=== PATIENT | female | born 1960 | race Caucasian/White ===

== ENCOUNTER 2016-09-19 13:53 | Emergency (ER) | payer MEDICARE, MEDICAID ==
[2016-02-02 10:33] VITALS: BMI 27.5
[~2016-09-19 13:53] MED LIST: VENTOLIN HFA18 GM INH; ZITHROMAX250 MG PO
== END 2016-09-19 17:51 | disposition left against medical advice (07) ==
LOC: D.ER 13:53
DX: M54.5 Low back pain (principal)

== ENCOUNTER → 2017-01-29 11:19 | Outpatient (CLI) | payer MEDICARE, MEDICAID ==
[2016-02-02 10:33] VITALS: BMI 27.5
[~2017-01-29 11:19] MED LIST changes: +BELSOMRA10 MG PO; +BUTALB-APAP-CA1 EACH PO; +MYCELEX TROCHE10 MG PO; +NEURONTIN 300300 MG PO; +NORVASC10 MG PO; +PERCOCET 10/3251 TA1 PO; +PHENERGAN DM SYR5 ML PO; +PHENERGAN25 M1 PO; +PROAIR HFA8.5 GM INH; +SKELAXIN800 MG PO; +ULTRAM50 MG PO; +VIBRAMYCIN 100100 MG PO
== END | disposition home or self-care (01) ==
LOC: D.MRI 11:19
DX: R12 Heartburn (principal); R10.13 Epigastric pain; R10.31 Right lower quadrant pain; R93.5 Abnormal findings on diagnostic imaging of other abdominal regions, including retroperitoneum; R19.4 Change in bowel habit

== ENCOUNTER 2017-02-21 22:31 | Inpatient (IN) | payer MEDICARE, MEDICAID ==
[~2017-02-21] VITALS: Ht 160 cm; Wt 81.5 kg
--- NOTE | ~2017-02-21 | CN ---
PATIENT NAME:CHUCKY PALMA MEDICAL RECORD: [id number] : 58 LOCATION:D. D.2139 ADMIT DATE: 02/22/17 ACCOUNT: [id number] CONSULTING PHYSICIAN: SB BURGOS MD REFERRING PHYSICIAN: RAMU ARREDONDO MD DATE OF CONSULTATION: 02/22/2017 Cardiology Consultation HISTORY OF PRESENT ILLNESS: A 56-year-old female with history of obstructive pulmonary disease, no known cardiovascular history who began feeling unwell approximately a week ago, malaise, fatigue, increasing cough, dyspnea. Initially, she thought this was her underlying COPD, following which she presented to the ER and was found to be in atrial fibrillation with RVR, multilobar pneumonia, hypokalemic and subsequently had cardiac enzymes that were elevated. We are asked to see her concerning her cardiovascular status. PAST MEDICAL HISTORY: Includes: 1. History of obstructive pulmonary disease. 2. Hypertension. ALLERGIES: SULFA, MORPHINE, DEPAKOTE, AND LEVAQUIN. MEDICATIONS: Typically include albuterol ProAir 2 puffs q.4 hours p.r.n., Skelaxin 800 mg t.i.d., amlodipine 10 every day, Fioricet 1 q.6 hours p.r.n., Neurontin 300 mg t.i.d., Belsomra 10 mg q.h.s., Percocet 10/325 q.12 hours p.r.n., Ultram 50 mg p.o. q. 6 hours p.r.n. SOCIAL HISTORY: Smokes greater than a pack a day. Nondrinker. Easily takes care of all her ADLs. No set exercise program. REVIEW OF SYSTEMS: The patient reports easy bruising but reports no swollen glands. The patient reports no fever, no night sweats, no significant weight gain, no significant weight loss. No significant exercise tolerance. The patient reports no dry eyes, no irritation, no vision change. Patient reports no difficulty hearing and no ear pain. Patient reports no frequent nose bleeds or nose and sinus problems. Patient reports on arm pain on exertion. No shortness of breath while lying down. No history of heart murmur. Patient reports no cough, no wheezing or coughing up blood. Patient reports no abdominal pain, no vomiting. Normal appetite. No diarrhea and not vomiting blood. No nausea and no constipation. Patient reports no incontinence. No difficulty urinating. No hematuria. No increased frequency. Patient reports no muscle aches. No weakness, no arthralgias, no back pain. No swelling of the extremities. Patient reports no abnormal mole, no jaundice, no rashes. Reports no loss of consciousness. No weakness and no numbness. No seizures, dizziness, or headaches. The patient reports no depression, no sleep disturbance, feeling safe in a relationship and no alcohol abuse. Patient reports on fatigue. Reports no runny nose or sinus pressure. No itching, no hives, and no frequent sneezing. PHYSICAL EXAMINATION: GENERAL: Chronically ill-appearing female in no acute distress at this point. VITAL SIGNS: Pulse 86 and sinus, blood pressure 106/69. HEENT: Normocephalic, atraumatic. NECK: No bruits noted. CONSULT REPORT [id number] CHUCKY PALMA HEART: Tones are distant. No obvious murmurs or gallops. LUNGS: Inspiratory and expiratory wheezes with prolonged expiratory phase. ABDOMEN: Soft, nontender. EXTREMITIES: Pulses are 1+. There is no edema. NEUROLOGIC: Grossly intact. IMPRESSION: Probably type 2 non-STEMI, although given her risk factors certainly could have underlying coronary artery disease. Agree with current management. We will check echocardiogram study. Start digoxin for any further arrhythmias. Echo study has been ordered. At some point, we will need ischemic workup when stable from a respiratory standpoint. TRANSINT:[id number] Voice Confirmation ID: [id number] DOCUMENT ID: [id number] SB BURGOS MD at 1337 CC: [id number] DICTATION DATE: 02/22/17 1029 PHOTO MASK INSPECTOR: 02/22/17 1153 DIS IN 02/25/[address] [facility] [address] [place] [address]
--- NOTE | ~2017-02-21 | EC ---
PATIENT:CHUCKY PALMA DATE OF SERVICE: 02/22/17 SEX: F MEDICAL RECORD: [id number] DATE OF : 58 LOCATION:D.M2 D.213 AGE OF PATIENT: 56 ADMISSION DATE: 02/22/17 REFERRING PHYSICIAN: INTERPRETING PHYSICIAN: SB BURGOS MD ECHOCARDIOGRAM REPORT ECHO CHARGES 4 ECHO COMPLETE CLINICAL DIAGNOSIS: AFIB, ELEVATED BNP ECHOCARDIOGRAPHIC MEASUREMENTS (adult normal given) AC root (d.<3.7cm) 2.5 cm LV Septum d (<1.2 cm> 1.4 cm Valve Excursion 1.4 cm LV Septum (systole) 1.6 cm Left Atria (s.<4.0cm> 3.7 cm LVPW d(<1.2cm) 1.2 cm RV (d.<2.3cm) 3.3 cm LVPW (sytole) 1.7 cm LV diastole(<5.6CM) 4.2 cm MV E-F(>70mm/sec) cm LV systole 2.7 cm LVOT Diameter 1.6 cm MV exc.(>10mm) 2.0 cm Est.ejection fraction (50-75%) % Pericardial Effusion N DOPPLER: LVIT cm/sec A 99.0 cm/sec E 70.0 cm/sec LA cm/sec RVSP 21 mmHg LVOT 94 cm/sec AOP1/2T m/s Asc. Ao 142 cm/sec RVOT cm/sec RA cm/sec PA cm/sec AV Gradient Peak 8.09 mmHg AV Mean 4.48 mmHg AV Area 1.7 cm MV Gradient Peak 6.28 mmHg MV Mean 2.20 mmHg MV Area cm COMMENTS: Spring Repairer Helper Hand: Janeth COLES General Engineer: 3 Dr. De La Cruz TAPE# PACS DATE OF SERVICE: 02/22/2017 Adequate 2D echo, color flow and spectral Doppler, and M-Mode. No LVH. LV internal dimension is normal. Wall motion is normal. EF is greater than 55%. Aortic valve is tricuspid. No stenosis by Doppler interrogation. The left atrium is normal. Mitral valve shows no prolapse. Trace MR. Right-sided chamber is grossly normal. Trace TR. TRANSINT:[id number] Voice Confirmation ID: [id number] DOCUMENT ID: [id number] ECHOCARDIOGRAM REPORT [id number] CHUCKY PALMA 02/25/2017 Edited to correct date of service, dmm. SB BURGOS MD at 1337 CC: [id number] DICTATION DATE: 02/23/17925 WASH PLANT OPERATOR: 02/23/17 1126 DIS IN 02/25/17 [place] [id number] [place] [id number]
[~2017-02-21 22:31] MED LIST changes: -BELSOMRA10 MG PO; -BUTALB-APAP-CA1 EACH PO; -MYCELEX TROCHE10 MG PO; -NEURONTIN 300300 MG PO; -NORVASC10 MG PO; -PERCOCET 10/3251 TA1 PO; -PHENERGAN DM SYR5 ML PO; -PHENERGAN25 M1 PO; -PROAIR HFA8.5 GM INH; -SKELAXIN800 MG PO; -ULTRAM50 MG PO; -VIBRAMYCIN 100100 MG PO
[2017-02-22] VITALS (22 sets, daily range): BP systolic 90–132; BP diastolic 31–99; BMI 31.8
[2017-02-22 01:02] LABS: HEMATOCRIT 37.1 % (36.0-48.0); HEMOGLOBIN 13.2 g/dL (12-16); MCH 30.1 pg (26.0-34.0); MCHC 35.6 g/dL (31.0-37.0); MCV 84.7 fL (80.0-100.0); MEAN PLATELET VOLUME 11.6 fL (7.4-10.4); PLATELET COUNT 264 10x3/uL (130-400); RBC 4.38 10x6/uL (4.00-5.40); RDW 14.7 % (11.5-14.5); WBC 26.6 10x3/uL (4.8-10.8)
[2017-02-22 01:20] LABS: APPEARANCE CLOUDY (CLEAR); BILIRUBIN 2+ (NEGATIVE); COLOR 1.015 (YELLOW); GLUCOSE NEGATIVE (NEGATIVE); KETONE NEGATIVE (NEGATIVE); NITRITE NEGATIVE (NEGATIVE); PROTEIN 3+ mg/dL (NEGATIVE); SPECIFIC GRAVITY 1.015 (1.005-1.020)
[2017-02-22 01:21] LABS: AMORPHOUS SEDIMENT >1+ /lpf (NONE SEEN); BACTERIA MANY /hpf (NONE SEEN); EPITHELIAL CELLS OCC /hpf (0-5); GRANULAR CAST NONE SEEN /lpf (NONE SEEN); HYALINE CAST NONE SEEN /lpf (NONE SEEN); MUCUS NONE SEEN /lpf (NONE SEEN); RED CELL CAST NONE SEEN /lpf (NONE SEEN); RED CELLS - URINE 0-5 /hpf (0-5); SPERMATOZOA NONE SEEN /hpf (NONE SEEN); WAXY CAST NONE SEEN /lpf (NONE SEEN); WHITE CELLS - URINE OCC /hpf (0-5); YEAST NONE SEEN /hpf (NONE SEEN)
[2017-02-22 01:27] LABS: LYMPHOCYTES 22 % (15-50); MONOCYTES 2 % (2-11); NEUTROPHILS 50 % (40-80); PLATELET ESTIMATE NORMAL; PLATELET MORPHOLOGY NORMAL PLT MORPH
[2017-02-22 01:46] LABS: ALKALINE PHOSPHATASE 219 U/L (46-116); ALT (SGPT) 37 U/L (10-68); BILIRUBIN - TOTAL 1.37 mg/dL (0.2-1.3); CALC OSMOLALITY 278 mosm/kg (275-300); CALCIUM 8.3 mg/dL (8.5-10.1); CARBON DIOXIDE 25.1 mmol/L (21.0-32.0); CHLORIDE - SERUM 97 mmol/L (98-107); CREATININE - SERUM 1.6 mg/dL (0.6-1.3); GLUCOSE 120 mg/dL (74-106); LIPASE 37 U/L (73-393); PRO BNP 26513 pg/mL (0-125); PROTEIN - SERUM 5.9 g/dL (6.4-8.2); SODIUM 135 mmol/L (136-145); UREA NITROGEN 35 mg/dL (7-18); eGFR NON AFRICAN AMERICAN 35 mL/min (90-120)
[2017-02-22 01:55] LABS: CKMB 14.7 U/L (0.0-3.6); CREATINE KINASE 3293 UL (21-215); POTASSIUM - SERUM 2.7 mmol/L (3.5-5.1)
[2017-02-22] MEDS ORDERED: NORVASC10 MG PO (03:59)
[2017-02-22] MEDS ORDERED: SKELAXIN800 MG PO (04:00)
[2017-02-22] MEDS ORDERED: PHENERGAN DM SYR5 ML PO (04:01)
[2017-02-22] MEDS ORDERED: NEURONTIN 300300 MG PO (04:02)
[2017-02-22] MEDS ORDERED: PHENERGAN25 M1 PO (04:03)
[2017-02-22] MEDS ORDERED: ULTRAM50 MG PO (04:03)
[2017-02-22] MEDS ORDERED: PERCOCET 10/3251 TA1 PO (04:04)
[2017-02-22] MEDS ORDERED: BELSOMRA10 MG PO (04:06)
[2017-02-22] MEDS ORDERED: BUTALB-APAP-CA1 EACH PO (04:07)
[2017-02-22] MEDS ORDERED: PROAIR HFA8.5 GM INH (04:08)
[2017-02-22 11:23] LABS: CKMB 9.5 U/L (0.0-3.6)
[2017-02-22 11:25] LABS: CREATINE KINASE 1698 UL (21-215); TROPONIN-I 0.568 ng/mL (0.000-0.060)
[2017-02-22 17:06] LABS: CKMB 7.1 U/L (0.0-3.6)
[2017-02-22 17:07] LABS: CREATINE KINASE 1431 UL (21-215)
[2017-02-22 22:54] LABS: CKMB 5.5 U/L (0.0-3.6); CREATINE KINASE 1225 UL (21-215); TROPONIN-I 0.286 ng/mL (0.000-0.060)
[2017-02-23] VITALS (15 sets, daily range): BP systolic 119–162; BP diastolic 62–91; Ht 160 cm; Wt 81.5 kg
[2017-02-23 03:51] LABS: BASOPHILS 0.1 % (0-2); EOSINOPHILS 0 % (0-7); HEMATOCRIT 32.6 % (36.0-48.0); HEMOGLOBIN 11.4 g/dL (12-16); LYMPHOCYTES 4.1 % (15-50); MCV 85.8 fL (80.0-100.0); MEAN PLATELET VOLUME 11.8 fL (7.4-10.4); MONOCYTES 1.3 % (2-11); NEUTROPHILS 93.5 % (40-80); PLATELET COUNT 294 10x3/uL (130-400); RDW 15.2 % (11.5-14.5); WBC 30.6 10x3/uL (4.8-10.8)
[2017-02-23 04:00] LABS: CALC OSMOLALITY 287 mosm/kg (275-300); CALCIUM 8.3 mg/dL (8.5-10.1); CARBON DIOXIDE 22.7 mmol/L (21.0-32.0); CHLORIDE - SERUM 105 mmol/L (98-107); GLUCOSE 146 mg/dL (74-106); POTASSIUM - SERUM 4.5 mmol/L (3.5-5.1); SODIUM 140 mmol/L (136-145); UREA NITROGEN 29 mg/dL (7-18); eGFR NON AFRICAN AMERICAN 78 mL/min (90-120)
[2017-02-23 04:37] LABS: CREATININE - SERUM 0.8 mg/dL (0.6-1.3)
[2017-02-24 03:00] VITALS: BP 139/80
[2017-02-24 03:53] LABS: BASOPHILS 0.1 % (0-2); EOSINOPHILS 0 % (0-7); HEMATOCRIT 33.8 % (36.0-48.0); HEMOGLOBIN 11.4 g/dL (12-16); IMMATURE GRANULOCYTES 1.5 % (0-5); LYMPHOCYTES 7.2 % (15-50); MCH 29.4 pg (26.0-34.0); MCHC 33.7 g/dL (31.0-37.0); MCV 87.1 fL (80.0-100.0); MEAN PLATELET VOLUME 11.5 fL (7.4-10.4); MONOCYTES 2.4 % (2-11); NEUTROPHILS 88.8 % (40-80); PLATELET COUNT 360 10x3/uL (130-400); RBC 3.88 10x6/uL (4.00-5.40); RDW 15.3 % (11.5-14.5); WBC 21.2 10x3/uL (4.8-10.8)
[2017-02-24 03:59] LABS: ANION GAP 16.2 mmol/L (8-16); CALCIUM 9.1 mg/dL (8.5-10.1); CARBON DIOXIDE 25.2 mmol/L (21.0-32.0); POTASSIUM - SERUM 4.4 mmol/L (3.5-5.1)
[2017-02-24 04:01] LABS: CREATININE - SERUM 1.1 mg/dL (0.6-1.3)
[2017-02-24 07:00] VITALS: BP 134/91
[2017-02-24 09:00] VITALS: BP 134/91
[2017-02-24 10:19] LABS: IMMUNOGLOBULIN E 38 IU/mL (0-100)
[2017-02-24 11:00] VITALS: BP 133/80
[2017-02-24 16:37] VITALS: BP 140/74
[2017-02-24 20:00] VITALS: BP 149/80
[2017-02-25] VITALS: BP 166/84
[2017-02-25 05:39] LABS: BASOPHILS 0.2 % (0-2); EOSINOPHILS 0.1 % (0-7); HEMATOCRIT 36.5 % (36.0-48.0); HEMOGLOBIN 11.9 g/dL (12-16); IMMATURE GRANULOCYTES 5.7 % (0-5); MCH 29.6 pg (26.0-34.0); MCHC 32.6 g/dL (31.0-37.0); MONOCYTES 3.9 % (2-11); NEUTROPHILS 66.1 % (40-80); RBC 4.02 10x6/uL (4.00-5.40); RDW 15.9 % (11.5-14.5); WBC 17.7 10x3/uL (4.8-10.8)
[2017-02-25 05:50] LABS: MCV 90.8 fL (80.0-100.0); PLATELET COUNT 471 10x3/uL (130-400)
[2017-02-25 06:06] LABS: ANION GAP 14.8 mmol/L (8-16); CALCIUM 8.8 mg/dL (8.5-10.1); CARBON DIOXIDE 25.7 mmol/L (21.0-32.0); CREATININE - SERUM 0.9 mg/dL (0.6-1.3)
[2017-02-25 06:07] LABS: POTASSIUM - SERUM 3.5 mmol/L (3.5-5.1)
[2017-02-25 08:54] VITALS: BP 146/86
[2017-02-25 12:28] VITALS: BP 139/68
[2017-02-25] MEDS ORDERED: MYCELEX TROCHE10 MG PO (14:39)
[2017-02-25] MEDS ORDERED: VIBRAMYCIN 100100 MG PO (14:39)
== END 2017-02-25 16:04 | disposition home or self-care (01) | DRG 871 ==
LOC: D.ER 22:31 → D.ICU 02-22 02:18 → D.M2 02-22 02:18
PROVIDERS: Family Medicine; Internal Medicine Nephrology; Internal Medicine Pulmonary Disease
DX: A41.9 Sepsis, unspecified organism (principal); J15.6 Pneumonia due to other Gram-negative bacteria; J13 Pneumonia due to Streptococcus pneumoniae; J15.20 Pneumonia due to staphylococcus, unspecified; I21.4 Non-ST elevation (NSTEMI) myocardial infarction; J96.01 Acute respiratory failure with hypoxia; I50.33 Acute on chronic diastolic (congestive) heart failure; N17.9 Acute kidney failure, unspecified; J44.1 Chronic obstructive pulmonary disease with (acute) exacerbation; J44.0 Chronic obstructive pulmonary disease with (acute) lower respiratory infection; F17.203 Nicotine dependence unspecified, with withdrawal; I24.8 Other forms of acute ischemic heart disease; I13.0 Hypertensive heart and chronic kidney disease with heart failure and stage 1 through stage 4 chronic kidney disease, or unspecified chronic kidney disease; I48.91 Unspecified atrial fibrillation; J30.9 Allergic rhinitis, unspecified; J20.9 Acute bronchitis, unspecified; I50.9 Heart failure, unspecified; N18.9 Chronic kidney disease, unspecified; K21.9 Gastro-esophageal reflux disease without esophagitis; B37.9 Candidiasis, unspecified

== ENCOUNTER 2017-05-15 07:48 | Emergency (ER) | payer MEDICARE, MEDICAID ==
[2017-02-23 10:05] VITALS: BMI 30.6
[~2017-05-15 07:48] MED LIST changes: +BELSOMRA10 MG PO; +BUTALB-APAP-CA1 EACH PO; +MYCELEX TROCHE10 MG PO; +NEURONTIN 300300 MG PO; +NORVASC10 MG PO; +PERCOCET 10/3251 TA1 PO; +PHENERGAN DM SYR5 ML PO; +PHENERGAN25 M1 PO; +PROAIR HFA8.5 GM INH; +SKELAXIN800 MG PO; +ULTRAM50 MG PO; +VIBRAMYCIN 100100 MG PO
[2017-05-15 08:46] LABS: BASOPHILS 0.2 % (0-2); EOSINOPHILS 1.2 % (0-7); HEMATOCRIT 41.5 % (36.0-48.0); HEMOGLOBIN 13.7 g/dL (12-16); IMMATURE GRANULOCYTES 0.2 % (0-5); LYMPHOCYTES 14.9 % (15-50); MCH 30.4 pg (26.0-34.0); MCV 92.2 fL (80.0-100.0); MEAN PLATELET VOLUME 9.8 fL (7.4-10.4); NEUTROPHILS 78.5 % (40-80); PLATELET COUNT 380 10x3/uL (130-400); RDW 15.5 % (11.5-14.5); WBC 19.5 10x3/uL (4.8-10.8)
[2017-05-15 09:02] LABS: ALBUMIN 3.1 g/dL (3.4-5.0); ANION GAP 14.1 mmol/L (8-16); BILIRUBIN - TOTAL 0.5 mg/dL (0.2-1.3); CALCIUM 9.4 mg/dL (8.5-10.1); CARBON DIOXIDE 27.9 mmol/L (21.0-32.0); CREATININE - SERUM 0.9 mg/dL (0.6-1.3)
== END 2017-05-15 11:20 | disposition home or self-care (01) ==
LOC: D.ER 07:48
PROVIDERS: Emergency Medicine
DX: J18.9 Pneumonia, unspecified organism (principal); J44.9 Chronic obstructive pulmonary disease, unspecified; I10 Essential (primary) hypertension; K21.9 Gastro-esophageal reflux disease without esophagitis; F17.200 Nicotine dependence, unspecified, uncomplicated

== ENCOUNTER 2018-09-04 19:47 | Inpatient (IN) | payer MEDICARE, MEDICAID ==
[~2018-09-04] VITALS: Ht 160 cm; Wt 81.4 kg
[2018-09-04] MEDS ORDERED: MAXALT10 MG PO (20:00)
[2018-09-04] MEDS ORDERED: BUSPAR10 MG PO (20:01)
[2018-09-04] MEDS ORDERED: LIORESAL 10 MG10 MG PO (20:01)
[2018-09-04 20:34] LABS: BASOPHILS 0.1 % (0-2); EOSINOPHILS 0.4 % (0-7); HEMOGLOBIN 15.2 g/dL (12-16); IMMATURE GRANULOCYTES 0.3 % (0-5); LYMPHOCYTES 13.1 % (15-50); MCH 30.6 pg (26.0-34.0); MCHC 34.5 g/dL (31.0-37.0); MCV 88.5 fL (80.0-100.0); MEAN PLATELET VOLUME 9.7 fL (7.4-10.4); MONOCYTES 6.9 % (2-11); NEUTROPHILS 79.2 % (40-80); PLATELET COUNT 339 10x3/uL (130-400); RBC 4.97 10x6/uL (4.00-5.40); WBC 25.3 10x3/uL (4.8-10.8)
[2018-09-04 20:46] LABS: ALBUMIN 3.8 g/dL (3.4-5.0); ALKALINE PHOSPHATASE 100 U/L (46-116); ALT (SGPT) 18 U/L (10-68); BILIRUBIN - TOTAL 0.84 mg/dL (0.2-1.3); CALC OSMOLALITY 280 mosm/kg (275-300); CALCIUM 9.4 mg/dL (8.5-10.1); CARBON DIOXIDE 24.9 mmol/L (21.0-32.0); CHLORIDE - SERUM 105 mmol/L (98-107); GLUCOSE 122 mg/dL (74-106); POTASSIUM - SERUM 4.1 mmol/L (3.5-5.1); SODIUM 140 mmol/L (136-145); UREA NITROGEN 16 mg/dL (7-18); eGFR NON AFRICAN AMERICAN 60 mL/min (90-120)
[2018-09-04 20:49] LABS: AMYLASE - SERUM 29 U/L (25-115); LIPASE 55 U/L (73-393)
[2018-09-04 20:50] LABS: TROPONIN-I < 0.017 ng/mL (0.000-0.060)
[2018-09-04 20:58] LABS: APPEARANCE CLEAR (CLEAR); BILIRUBIN NEGATIVE (NEGATIVE); COLOR DK YELLOW (YELLOW); GLUCOSE NEGATIVE (NEGATIVE); KETONE NEGATIVE (NEGATIVE); NITRITE NEGATIVE (NEGATIVE); PROTEIN NEGATIVE (NEGATIVE); UROBILINOGEN NORMAL (NORMAL)
--- NOTE | 2018-09-04 23:32 | NUR ---
RECEIVED REPORT FROM TOMMY CRUZ. PT IS LAYING IN BED. RESPIRATIONS ARE EVEN AND UNLABORED. NO DISTRESS IS NOTED. FAMILY MEMBER AT BEDSIDE. PT IV PATENT AND INFUSING AT BOLUS RATE AT THIS TIME.
--- NOTE | 2018-09-05 00:52 | NUR ---
PT PLACED ON 2L NC PT REPORTS SHE USES 02 AT NIGHT PRN. PT O2 SAT 92% ON 2L
--- NOTE | 2018-09-05 01:06 | NUR ---
PT ARRIVED ON UNIT VIA WHEELCHAIR ESCORTED BY ER NURSE. PROVIDED GOWN FOR PATIENT AND POSITIONED IN BED FOR COMFORT. FLUSHED IV IN RIGHT AC. AND RE-TAPED INTO POSITION.
[2018-09-05] MEDS ORDERED: DALIRESP500 MCG PO (01:46)
[2018-09-05] MEDS ORDERED: TRAZODONE HCL300 MG PO (01:46)
--- NOTE | 2018-09-05 01:50 | NUR ---
PROVIDED PT WITH WATER, LEMON PECHANGA SODA AND QUENTIN CRACKERS FOR SNACK.
--- NOTE | 2018-09-05 02:14 | NUR ---
PT REFUSED TELEMETRY...RETURNED MONITOR TO [facility].
--- NOTE | 2018-09-05 02:15 | NUR ---
IV FLUIDS STARTED. FINISHED ZOSYN STARTED IN ER. STARTED IV ROBAXIN 1000 MG IVPB....WILL START IVPB VANC NEXT.
[2018-09-05 02:32] VITALS: BP 140/71; Ht 160 cm; Wt 81.4 kg
[2018-09-05 05:45] VITALS: BP 114/69
[2018-09-05 08:44] VITALS: BP 122/54
[2018-09-05 09:19] LABS: BASOPHILS 0.2 % (0-2); HEMATOCRIT 40.9 % (36.0-48.0); HEMOGLOBIN 13.9 g/dL (12-16); IMMATURE GRANULOCYTES 0.3 % (0-5); LYMPHOCYTES 16.6 % (15-50); MCV 88.1 fL (80.0-100.0); MEAN PLATELET VOLUME 9.9 fL (7.4-10.4); MONOCYTES 6.8 % (2-11); NEUTROPHILS 75.1 % (40-80); PLATELET COUNT 309 10x3/uL (130-400); RBC 4.64 10x6/uL (4.00-5.40); RDW 16.3 % (11.5-14.5)
--- NOTE | 2018-09-05 09:20 | NUR ---
ALERT AND ORIENTEDX4. EXP/INSPIRATORY CRACKLES NOTED X4 POSERIOR. CAP REFILL<3 SEC. O2 2L N/C. DENIES ANY SHORTNESS OF BREATH. IVF INFUSING VIA LT. FOREARM W/O COMPLICATIONS. ENCOURAGED TO USE CALL LIGHT FOR ASSSIT WITH PERCOCET GIVEN FOR PAIN.
[2018-09-05 09:22] LABS: WBC 17.5 10x3/uL (4.8-10.8)
[2018-09-05 09:32] LABS: ALBUMIN 3.3 g/dL (3.4-5.0); ANION GAP 15.3 mmol/L (8-16); BILIRUBIN - TOTAL 0.8 mg/dL (0.2-1.3); CALCIUM 8.4 mg/dL (8.5-10.1); CARBON DIOXIDE 24.4 mmol/L (21.0-32.0); POTASSIUM - SERUM 3.7 mmol/L (3.5-5.1); PROTEIN - SERUM 6.4 g/dL (6.4-8.2)
[2018-09-05 12:59] VITALS: BP 117/78
[2018-09-05 18:03] VITALS: BP 131/65
[2018-09-05 20:00] VITALS: BP 117/61
--- NOTE | 2018-09-05 20:00 | NUR ---
ALERT SITTING U[P ON SIDE OF BED REPORTS HEADACHE, INSTRUCTED TOO EARLY FOR PAIN MEDICATION, SEE SHIFT ASSESSMENT, CALL LIGHT IN REACH
[2018-09-06 03:07] LABS: UDS - AMPHET NEGATIVE QUAL (NEGATIVE); UDS - BARB NEGATIVE QUAL (NEGATIVE); UDS - BENZO NEGATIVE QUAL (NEGATIVE); UDS - COCAINE NEGATIVE QUAL (NEGATIVE); UDS - OPIATE POSITIVE QUAL (NEGATIVE); UDS - PCP NEGATIVE QUAL (NEGATIVE); UDS - THC NEGATIVE QUAL (NEGATIVE)
[2018-09-06 04:00] VITALS: BP 162/85
[2018-09-06 05:44] LABS: CALC OSMOLALITY 286 mosm/kg (275-300); CALCIUM 8.8 mg/dL (8.5-10.1); CARBON DIOXIDE 24.5 mmol/L (21.0-32.0); CHLORIDE - SERUM 107 mmol/L (98-107); CREATININE - SERUM 0.8 mg/dL (0.6-1.3); GLUCOSE 172 mg/dL (74-106); SODIUM 143 mmol/L (136-145); UREA NITROGEN 7 mg/dL (7-18); VANCOMYCIN - TROUGH 15.2 ug/mL (10.0-20.0); eGFR NON AFRICAN AMERICAN 78 mL/min (90-120)
[2018-09-06 05:50] LABS: POTASSIUM - SERUM 4.4 mmol/L (3.5-5.1)
[2018-09-06 06:15] LABS: BASOPHILS 0.1 % (0-2); EOSINOPHILS 0 % (0-7); HEMATOCRIT 43.6 % (36.0-48.0); HEMOGLOBIN 14.2 g/dL (12-16); IMMATURE GRANULOCYTES 0.6 % (0-5); LYMPHOCYTES 11.2 % (15-50); MCH 29.2 pg (26.0-34.0); MCHC 32.6 g/dL (31.0-37.0); MCV 89.5 fL (80.0-100.0); MEAN PLATELET VOLUME 10.1 fL (7.4-10.4); MONOCYTES 1.8 % (2-11); NEUTROPHILS 86.3 % (40-80); PLATELET COUNT 310 10x3/uL (130-400); RBC 4.87 10x6/uL (4.00-5.40); RDW 16.6 % (11.5-14.5); WBC 13.9 10x3/uL (4.8-10.8)
--- NOTE | 2018-09-06 07:55 | NUR ---
PT AWAKE AND ORIENTED, C/O PAIN BUT UNDERSTANDS SHE CAN NOT GET ANY MORE PAIN MEDICATIONS UNTIL CERTAIN TIMES PER MD ORDER. PT WANTS TO GET UP AND WALK AROUND, UNHOOKED HER AT THIS TIME SO SHE COULD WALK. WILL HOOK BACK UP SHORLTY. PT WANTS TO GO HOME TODAY, STATING SHE DOESN'T FEEL GOOD AND WOULD BE BETTER AT HOME. WILL ADVISE DR WHEN THEY ARRIVE.
[2018-09-06 08:15] VITALS: BP 173/81
[2018-09-06 12:15] VITALS: BP 133/67
[2018-09-06] MEDS ORDERED: ALBUTEROL2.5 MG/3 M INH (12:49)
[2018-09-06] MEDS ORDERED: BROVANA15 MCG/2 M INH (12:49)
[2018-09-06] MEDS ORDERED: TESSALON PERLE100 MG PO (12:49)
[2018-09-06] MEDS ORDERED: PULMICORT0.5 MG/21 UPD (12:49)
[2018-09-06] MEDS ORDERED: MUCINEX DM ER1 EAC1 PO (12:50)
[2018-09-06] MEDS ORDERED: FLORAJEN3 CAPS460 MG PO (12:50)
[2018-09-06] MEDS ORDERED: AZELASTINE137 MCG/0. NASAL (12:50)
[2018-09-06] MEDS ORDERED: SINGULAIR10 MG PO (12:50)
[2018-09-06] MEDS ORDERED: FLUTICASONE PRO16 GM NASAL (12:50)
[2018-09-06] MEDS ORDERED: PROTONIX40 MG PO (12:52)
[2018-09-06] MEDS ORDERED: PREDNISONE10 MG PO (12:53)
[2018-09-06] MEDS ORDERED: DIFLUCAN150 MG PO (12:54)
[2018-09-06] MEDS ORDERED: ZITHROMAX500 MG PO (12:55)
[2018-09-06] MEDS ORDERED: Nicoderm [PBKC] TRANSDERM (12:55)
[2018-09-06] MEDS ORDERED: OMNICEF300 MG PO (12:55)
--- NOTE | 2018-09-06 13:14 | MORECARE ---
CASE MANAGEMENT DISCHARGE SUMMARY PATIENT: CHUCKY PALMA UNIT: [id number] ADM DATE: 09/05/18 AGE: 57 : 58 SEX: F ROOM/BED: D.2233 AUTHOR: ERASMO VILLEGAS PHYSICIAN: REFERRING PHYSICIAN: RAMU ARREDONDO MD DATE OF SERVICE: 09/06/18 Discharge Plan Patient Name: CHUCKY PALMA Facility: [facility]:[place] : 1960 Planned Disposition: Home Anticipated Discharge Date: 09/06/18 Discharge Date: Expected LOS: 1 Initial Reviewer: [email or web address] Initial Review Date: 09/06/2018 Generated: 09/06/18 2:14 pm Patient Name: CHUCKY PALMA Page [phone] at 1314 All edits/amendments must be made on the electronic document DICTATION DATE: 09/06/18 1313 HSPT TUTOR: ALON 09/06/18 1313 RPT#: [id number] DC DATE: STATUS: ADM IN [facility] [address] [place] [address] END OF REPORT
--- NOTE | 2018-09-06 13:21 | MORECARE ---
CASE MANAGEMENT DISCHARGE SUMMARY PATIENT: CHUCKY PALMA UNIT: [id number] ADM DATE: 09/05/18 AGE: 57 : 58 SEX: F ROOM/BED: D.2233 AUTHOR: NELLY,DOC PHYSICIAN: REFERRING PHYSICIAN: RAMU ARREDONDO MD DATE OF SERVICE: 09/06/18 Discharge Plan Patient Name: CHUCKY PALMA Facility: [facility]:[place] : 1960 Planned Disposition: Home Anticipated Discharge Date: 09/06/18 Discharge Date: Expected LOS: 1 Initial Reviewer: [email or web address] Initial Review Date: 09/06/2018 Generated: 09/06/18 2:20 pm Comments DCP- Discharge Planning Updated by [email or web address]: Laure Hare on 09/06/18 12:[address] Patient Name: CHUCKY PALMA Admission Status: ER Accout number: [id number] Admission Date: 09-05-2018 : 1960 Admission Diagnosis: Attending: RAMU ARREDONDO Current LOS: 1 Anticipated DC Date: 09-06-2018 Planned Disposition: Home Primary Insurance: [employer] CHOICE PPO MCR ADVANT Discharge Planning Comments: CM met with patient to complete initial dc planning assessment. CM educated patient on the CM role and verbal consent given by patient to complete assessment. Patient lives at home with her boyfriend (Austin Larsen). At discharge patient plans to return and feels this is a safe discharge. CM discussed availability of home health, rehab services, and medical equipment. Patient denied known discharge needs at this time. She states she will be able to purchase her Rx. CM will continue to follow and will assist as needed with dc plans/needs. Bankruptcy Attorney: Laure Hare DCPIA - Discharge Planning Initial Assessment Updated by [email or web address]: Laure Hare on 09/06/18 1:15 pm * Is the patient Alert and Oriented? Yes * How many steps to enter\exit or inside your home? 1/0 * PCP Dr. Jennings * Pharmacy [facility] * Preadmission Environment Home with Family * ADLs Independent * Equipment Nebulizer Other Oxygen * Other Equipment Portable oxygen * List name and contact numbers for known caregivers / representatives who currently or will assist patient after discharge: Austin Larsen - boyfriend - [phone] * Verbal permission to speak to the caregivers and representatives has been obtained from the patient. Yes * Community resources currently utilized None * Please name any agencies selected above. Bill is DME * Additional services required to return to the preadmission environment? No * Can the patient safely return to the preadmission environment? Yes * Has this patient been hospitalized within the prior 30 days at any hospital? No Last DP export: 09/06/18 12:14 p Patient Name: CHUCKY PALMA Page [phone] at 1321 All edits/amendments must be made on the electronic document DICTATION DATE: 09/06/181319 CAN REFORMING MACHINE OPERATOR: ALON 09/06/18 1320 RPT#: [id number] DC DATE: STATUS: ADM IN [facility] [address] [place] [address] END OF REPORT
--- NOTE | 2018-09-06 14:50 | NUR ---
PT ESCORTED OUT VIA WHEELCHAIR TO DAUGHTERS POV
[2018-09-07 10:10] LABS: IMMUNOGLOBULIN A 80 mg/dL (87-352); IMMUNOGLOBULIN G 585 mg/dL (700-1600)
[2018-09-09 21:06] LABS: IGG SUBCLASS 1 386 mg/dL (248-810); IGG SUBCLASS 2 133 mg/dL (130-555); IGG SUBCLASS 3 32 mg/dL (15-102); IGG SUBCLASS 4 1 mg/dL (2-96)
== END 2018-09-06 14:51 | disposition home or self-care (01) | DRG 193 ==
LOC: D.ER 19:47 → D.MS 09-05 00:09
PROVIDERS: Family Medicine; Internal Medicine Pulmonary Disease; ADMIT Internal Medicine Nephrology; ATTEND Internal Medicine Nephrology
DX: J18.1 Lobar pneumonia, unspecified organism (principal); J96.21 Acute and chronic respiratory failure with hypoxia; J44.0 Chronic obstructive pulmonary disease with (acute) lower respiratory infection; J44.1 Chronic obstructive pulmonary disease with (acute) exacerbation; I11.0 Hypertensive heart disease with heart failure; I50.9 Heart failure, unspecified; K21.9 Gastro-esophageal reflux disease without esophagitis; I08.1 Rheumatic disorders of both mitral and tricuspid valves; F17.210 Nicotine dependence, cigarettes, uncomplicated; I48.2 Chronic atrial fibrillation; M79.7 Fibromyalgia; M81.0 Age-related osteoporosis without current pathological fracture; I10 Essential (primary) hypertension; E78.00 Pure hypercholesterolemia, unspecified

== ENCOUNTER 2018-09-25 18:52 | Inpatient (IN) | payer MEDICARE, MEDICAID ==
[~2018-09-25] VITALS: Ht 160 cm; Wt 79.8 kg
[~2018-09-25 18:52] MED LIST changes: +ALBUTEROL2.5 MG/3 M INH; +AZELASTINE137 MCG/0. NASAL; +BROVANA15 MCG/2 M INH; +BUSPAR10 MG PO; +DALIRESP500 MCG PO; +DIFLUCAN150 MG PO; +FLORAJEN3 CAPS460 MG PO; +FLUTICASONE PRO16 GM NASAL; +LIORESAL 10 MG10 MG PO; +MAXALT10 MG PO; +MUCINEX DM ER1 EAC1 PO; +Nicoderm [PBKC] TRANSDERM; +OMNICEF300 MG PO; +PREDNISONE10 MG PO; +PROTONIX40 MG PO; +PULMICORT0.5 MG/21 UPD; +SINGULAIR10 MG PO; +TESSALON PERLE100 MG PO; +TRAZODONE HCL300 MG PO; +ZITHROMAX500 MG PO
[2018-09-25] MEDS ORDERED: TAMIFLU75 MG PO (18:58)
[2018-09-25 19:32] LABS: BASOPHILS 0.4 % (0-2); EOSINOPHILS 1.4 % (0-7); HEMATOCRIT 46.5 % (36.0-48.0); HEMOGLOBIN 16.1 g/dL (12-16); IMMATURE GRANULOCYTES 0.4 % (0-5); LYMPHOCYTES 28.1 % (15-50); MCH 30.7 pg (26.0-34.0); MCHC 34.6 g/dL (31.0-37.0); MCV 88.7 fL (80.0-100.0); MEAN PLATELET VOLUME 9.3 fL (7.4-10.4); NEUTROPHILS 62.7 % (40-80); PLATELET COUNT 337 10x3/uL (130-400); RBC 5.24 10x6/uL (4.00-5.40); RDW 16.4 % (11.5-14.5); WBC 16.2 10x3/uL (4.8-10.8)
[2018-09-25 19:44] LABS: APTT 35.7 SECONDS (22.8-39.4); INR 1.02 (0.85-1.17); PROTIME 12.9 SECONDS (11.6-15.0)
[2018-09-25 19:46] LABS: ALBUMIN 3.6 g/dL (3.4-5.0); ALKALINE PHOSPHATASE 101 U/L (46-116); ALT (SGPT) 17 U/L (10-68); BILIRUBIN - TOTAL 0.31 mg/dL (0.2-1.3); CALC OSMOLALITY 275 mosm/kg (275-300); CALCIUM 9.5 mg/dL (8.5-10.1); CARBON DIOXIDE 27.7 mmol/L (21.0-32.0); CHLORIDE - SERUM 103 mmol/L (98-107); PROTEIN - SERUM 7.2 g/dL (6.4-8.2); SODIUM 139 mmol/L (136-145); UREA NITROGEN 8 mg/dL (7-18); eGFR NON AFRICAN AMERICAN 60 mL/min (90-120)
[2018-09-25 19:47] LABS: GLUCOSE 102 mg/dL (74-106)
[2018-09-25 19:58] LABS: CKMB 0.9 U/L (0.0-3.6); CREATINE KINASE 59 UL (21-215); TROPONIN-I < 0.017 ng/mL (0.000-0.060)
[2018-09-25 20:08] LABS: APPEARANCE CLEAR (CLEAR); BILIRUBIN NEGATIVE (NEGATIVE); COLOR YELLOW (YELLOW); GLUCOSE NEGATIVE (NEGATIVE); KETONE NEGATIVE (NEGATIVE); NITRITE NEGATIVE (NEGATIVE); PROTEIN NEGATIVE (NEGATIVE); SPECIFIC GRAVITY 1.015 (1.005-1.020); UROBILINOGEN NORMAL (NORMAL)
--- NOTE | 2018-09-25 20:46 | NUR ---
MORPHINE ORDERED AT THIS TIME PT STATES THAT SHE IS ALLERGIC. PA AT BEDSIDE. PT STATES THAT HER "ALLERGY" IS IT MAKES HER NAUSEATED. PT STATES THAT IS OK TO CONT MORPHINE WITH NAUSEA MED. PT SEE EMAR.
--- NOTE | 2018-09-25 21:00 | NUR ---
PT AMBULATORY TO BATHROOM WITHOUT ASSISTANCE.
--- NOTE | 2018-09-25 22:30 | NUR ---
RECEIVED PT FROM ER VIA STRETCHER BUT AMBULATED TO BED WITH ASSIST X1. GAIT SLIGHTLY UNSTEADY. GEN WEAKNESS NOTED. RESP NONLABORED. SOB WITH EXERTION. O2 @ 2LNC. PROD COUGH WITH YELLOW SPUTUM REPORTED. V/S STABLE. REPORTS PAIN IN HEAD AND GENERALIZED PAIN 10. RECEIVED MORPHINE IN ER WHICH IS ENTERED ALLERGY BUT PT AND ER STAFF REPORT THAT IT HAS CAUSED HER NAUSEA IN THE PAST AND IS NOT A TRUE ALLERGY. IV INFUSING IN RT FOREARM WITHOUT DIFF. NO DISTRESS. IRRITABLE. SR ELEVATED X2. CL IN REACH.
[2018-09-26] VITALS (7 sets, daily range): BP systolic 126–165; BP diastolic 56–99; BMI 31.2
--- NOTE | 2018-09-26 01:05 | NUR ---
REQUESTS PAIN MED FOR C/O HEADACHE AND GEN ACHES RATING 10. MEDICATED WITH MORPHINE AND ZOFRAN ORDERED. WATCHING TV. NO DISTRESS. CL IN REACH.
--- NOTE | 2018-09-26 03:05 | NUR ---
MEDICATED WITH TYLENOL FOR C/O HEADACHE RATING 10. CL IN REACH. WATCHING TV.
--- NOTE | 2018-09-26 05:10 | NUR ---
MEDICATED WITH MORPHINE FOR C/O HEADACHE, GEN PAIN. GIVEN ZOFRAN TO PREVENT NAUSEA ASSOCIATED WITH MORPHINE. CL IN REACH.
--- NOTE | 2018-09-26 05:45 | NUR ---
PUT SCDS ON PT THEN REFUSED. EXPLAINED PURPOSE AND SHE STILL REFUSED.
[2018-09-26] MEDS ORDERED: PERCOCET 10-321 EAC1 PO (08:06)
[2018-09-26 10:16] LABS: BASOPHILS 0.1 % (0-2); EOSINOPHILS 0 % (0-7); HEMATOCRIT 44.5 % (36.0-48.0); HEMOGLOBIN 15.1 g/dL (12-16); IMMATURE GRANULOCYTES 0.3 % (0-5); LYMPHOCYTES 9.6 % (15-50); MCH 30.2 pg (26.0-34.0); MCHC 33.9 g/dL (31.0-37.0); MEAN PLATELET VOLUME 9.6 fL (7.4-10.4); MONOCYTES 1.2 % (2-11); NEUTROPHILS 88.8 % (40-80); PLATELET COUNT 334 10x3/uL (130-400); RDW 16.5 % (11.5-14.5); WBC 15.7 10x3/uL (4.8-10.8)
[2018-09-26 10:27] LABS: CALCIUM 9.2 mg/dL (8.5-10.1); CARBON DIOXIDE 23.3 mmol/L (21.0-32.0); POTASSIUM - SERUM 4.3 mmol/L (3.5-5.1)
--- NOTE | 2018-09-26 20:10 | NUR ---
SITTING UP IN BED. ALERT AND ORIENTED X4. RESP IRREG. SOB NOTED BUT REFUSES TO WEAR O2 AT THIS TIME. STATES SHE HAS HAD A HEADACHE FOR SEVERAL DAYS. REPORTS PAIN GEN PAIN AND H/A 10 ON PAIN SCALE. MEDICATED WITH DEMEROL AND ZOFRAN. NS @ 75 ML/HR INFUSING IN LT UPPER ARM WITHOUT DIFF. PROD COUGH NOTED WITH YELLOW SPUTUM. REFUSES TO WEAR SCDS. BBS CTA BUT DIMINISHED IN RLL. SR ELEVATED X2. CL IN REACH.
--- NOTE | 2018-09-26 23:25 | NUR ---
REQUESTING PAIN MED. REPORTS PAIN IN HEAD AND ABD. MEDICATED WITH PERCOCET ORDERED. WARM PACK MADE FOR HEAD. WEARING O2 NOW AND HUMIDITY APPLIED. CL IN REACH.
[2018-09-27] VITALS: BP 129/68
--- NOTE | 2018-09-27 02:06 | NUR ---
CALLS STAFF INTO ROOM. C/O ITCHING ALL OVER AND STATES SKIN IS GETTING PINK SINCE RECEIVING ROCEPHIN AT 0044. NOTIFIED MARCO A LIVE. NEW ORDERS NOTED. ROCEPHIN ADDED TO ALLERGIES. PT IN NO ACUTE DISTRESS.
[2018-09-27 04:00] VITALS: BP 152/76
--- NOTE | 2018-09-27 04:14 | NUR ---
COUGHING SPELL AND GAGGING. STATES SHE WANTS PAIN MED, MAXALT, ZOFRAN, AND JELLO. INFORMED THAT PAIN MED WASNT DUE YET. SHE THEN STATES, WELL I WANT THE MAXALT,ZOFRAN AND JELLO.
[2018-09-27 06:12] LABS: BASOPHILS 0 % (0-2); EOSINOPHILS 0 % (0-7); HEMATOCRIT 41.9 % (36.0-48.0); HEMOGLOBIN 14.3 g/dL (12-16); IMMATURE GRANULOCYTES 0.3 % (0-5); LYMPHOCYTES 16.1 % (15-50); MCH 30.1 pg (26.0-34.0); MCHC 34.1 g/dL (31.0-37.0); MCV 88.2 fL (80.0-100.0); MEAN PLATELET VOLUME 9.9 fL (7.4-10.4); NEUTROPHILS 79.6 % (40-80); PLATELET COUNT 338 10x3/uL (130-400); RBC 4.75 10x6/uL (4.00-5.40); RDW 16.4 % (11.5-14.5); WBC 14.8 10x3/uL (4.8-10.8)
[2018-09-27 06:53] LABS: CALC OSMOLALITY 276 mosm/kg (275-300); CALCIUM 9.4 mg/dL (8.5-10.1); CARBON DIOXIDE 24.4 mmol/L (21.0-32.0); CHLORIDE - SERUM 103 mmol/L (98-107); CREATININE - SERUM 0.8 mg/dL (0.6-1.3); GLUCOSE 133 mg/dL (74-106); POTASSIUM - SERUM 3.7 mmol/L (3.5-5.1); SODIUM 138 mmol/L (136-145); UREA NITROGEN 10 mg/dL (7-18); eGFR NON AFRICAN AMERICAN 78 mL/min (90-120)
[2018-09-27 08:20] VITALS: BP 148/74
--- NOTE | 2018-09-27 10:54 | NUR ---
PATIENT REQUESTING BEDPAN BECAUSE SHE IS "TO WEAK TO WALK" ASSISTED BY GRACE. CO OF "BURNING" AND "FREEZING" AT THE SAME TIME. CL IN REACH WCTM
[2018-09-27 12:39] VITALS: BP 150/85
[2018-09-27 14:30] VITALS: BMI 31.1
[2018-09-27 16:26] VITALS: Ht 160 cm; Wt 79.8 kg
[2018-09-27 17:15] VITALS: BP 161/75
--- NOTE | 2018-09-27 17:48 | NUR ---
PATIENT STATES SHE ALSO TAKES GABAPENTIN 600 TID. THAT IF THE BOYFRIEND FOUND OUT IT WOULD UPSET HIM AND THAT HE WOULD NEVER TRUST HER AGAIN. I SAID I WOULD ADD IT TO THE MEDS SHE TAKES.
[2018-09-27] MEDS ORDERED: NEURONTIN600 MG PO (17:50)
--- NOTE | 2018-09-27 18:55 | NUR ---
WENT TO DO PATIENTS BREATHING TREATMENT AT 1855 AND PATIENT STATED THAT SHE "JUST COULDN'T DO THAT RIGHT NOW" DOCUMENTED PATIENT REFUSED
--- NOTE | 2018-09-27 19:35 | NUR ---
PT IS COUGHING AND FEELS NAUSEA FROM MUCOUS. SHE DECLINED REP TX AND NOW WANTS ON. PAGE TO RESP FOR TX.PT O2 SATS 93-94% ON 2 LITERS PER CANULA.MONITOR FOR NEEDS
[2018-09-27 20:00] VITALS: BP 177/83
--- NOTE | 2018-09-27 20:00 | NUR ---
ASSESSMENT PER FLOW SHEET. PT IS VERY ANXIOUS. IS AT BEDSIDE.CALL LIGHT IN REACH
--- NOTE | 2018-09-27 20:07 | NUR ---
16 LATVIAN SAVAGE INSERTED USING FOOTWEAR MACHINERY INSTRUCTOR.BED CHANGED IT WAS SOAKED FROM URINE. PT COMPLAINS OF THE BOTTOMS OF HER FEET AND BACK FEELING SUNBURNED. I SEE SOME PINKNESS BUT NO BLISTERS PER STATED.
--- NOTE | 2018-09-27 21:00 | NUR ---
RAPID RESPONCE CALLED ,SEE SHEET.
[2018-09-27 21:41] LABS: ALBUMIN 3.6 g/dL (3.4-5.0); ALKALINE PHOSPHATASE 97 U/L (46-116); ALT (SGPT) 19 U/L (10-68); BILIRUBIN - TOTAL 0.47 mg/dL (0.2-1.3); CALC OSMOLALITY 273 mosm/kg (275-300); CALCIUM 9.6 mg/dL (8.5-10.1); CHLORIDE - SERUM 101 mmol/L (98-107); CKMB 2.5 U/L (0.0-3.6); CREATINE KINASE 135 UL (21-215); CREATININE - SERUM 0.8 mg/dL (0.6-1.3); GLUCOSE 112 mg/dL (74-106); POTASSIUM - SERUM 3.6 mmol/L (3.5-5.1); PROTEIN - SERUM 7.2 g/dL (6.4-8.2); SODIUM 137 mmol/L (136-145); TROPONIN-I < 0.017 ng/mL (0.000-0.060); UREA NITROGEN 10 mg/dL (7-18); eGFR NON AFRICAN AMERICAN 78 mL/min (90-120)
[2018-09-28] VITALS: BP 172/92
--- NOTE | 2018-09-28 01:49 | NUR ---
FINALLY CALM AFTER BEING UPSET AND VERY ANXIOUS DURING NIGHT. PT STATES SHE WILL GO TO SLEEP NOW AFTER IV ATIVAN ORDERED PER APR.
[2018-09-28 04:00] VITALS: BP 159/81
--- NOTE | 2018-09-28 06:27 | NUR ---
MORE CALM THIS AM. PT REQUEST MORE ATIVAN IV.INSTRUCTED PT THAT WAS A ONE TIME DOSE.MEDS ORDERED PER MAR PER PT REQUEST FOR HEADACHE.CONT PLAN OF CARE
--- NOTE | 2018-09-28 06:55 | NUR ---
PATIENT REFUSED TX DUE TO FATIGUE AND NAUSEA
[2018-09-28 06:58] LABS: BASOPHILS 0.1 % (0-2); EOSINOPHILS 0.1 % (0-7); HEMATOCRIT 46.3 % (36.0-48.0); HEMOGLOBIN 15.9 g/dL (12-16); IMMATURE GRANULOCYTES 0.4 % (0-5); LYMPHOCYTES 25.3 % (15-50); MCHC 34.3 g/dL (31.0-37.0); MCV 87.4 fL (80.0-100.0); MEAN PLATELET VOLUME 9.8 fL (7.4-10.4); MONOCYTES 7.9 % (2-11); NEUTROPHILS 66.2 % (40-80); PLATELET COUNT 381 10x3/uL (130-400); RDW 16.3 % (11.5-14.5)
[2018-09-28 07:28] LABS: WBC 18.6 10x3/uL (4.8-10.8)
[2018-09-28 07:41] LABS: CALC OSMOLALITY 278 mosm/kg (275-300); CALCIUM 9.3 mg/dL (8.5-10.1); CARBON DIOXIDE 27.7 mmol/L (21.0-32.0); CHLORIDE - SERUM 102 mmol/L (98-107); CKMB 1.7 U/L (0.0-3.6); CREATINE KINASE 108 UL (21-215); CREATININE - SERUM 0.6 mg/dL (0.6-1.3); GLUCOSE 84 mg/dL (74-106); POTASSIUM - SERUM 3.8 mmol/L (3.5-5.1); SODIUM 141 mmol/L (136-145); UREA NITROGEN 9 mg/dL (7-18); eGFR NON AFRICAN AMERICAN > 90 mL/min (90-120)
[2018-09-28 07:42] LABS: TROPONIN-I < 0.017 ng/mL (0.000-0.060)
[2018-09-28 09:33] VITALS: BP 164/84
[2018-09-28 10:01] LABS: CKMB 1.7 U/L (0.0-3.6); CREATINE KINASE 116 UL (21-215); TROPONIN-I < 0.017 ng/mL (0.000-0.060)
--- NOTE | 2018-09-28 10:10 | NUR ---
THE PATIENT WAS LYING IN BED AND WATCHING TELEVISION WHEN STAFF ENTERED HER ROOM. BED IS IN THE LOW POSITION WITH SIDERAILS X2 AND CALL LIGHT WITHIN REACH. THE PATIENT WAS EDUCATED ON THE USE OF A CALL LIGHT AND DEMONSTRATES UNDERSTANDING VIA TEACHBACK METHOD. THE PATIENT APPEARS COMFORTABLE WITH NO QUESTIONS OR COCNERNS AT THIS TIME.
--- NOTE | 2018-09-28 10:19 | NUR ---
PATIENT DEMANDS SAVAGE CATHETER REMOVAL. SAVAGE CATHETER REMOVED WITHOUT ISSUE. THE PATIENT APPEARS COMFORTABLE WITH NO QUESTIONS OR CONCERNS AT THIS TIME.
[2018-09-28 11:29] VITALS: BP 159/83
[2018-09-28 16:35] VITALS: BP 156/86
--- NOTE | 2018-09-28 19:00 | NUR ---
ASSESSMENT PER FLOW SHEET. PT IS WITHOUT DISTRESS.MUCH MORE CALM THIS AFTERNOON. PT VERY APOLOGETIC RE.. LAST NIGHT ANXIETY. MONITOR FOR NEEDS.CALL LIGHT IN REACH
[2018-09-28 22:24] VITALS: BP 167/87
[2018-09-29 03:48] VITALS: BP 137/77
--- NOTE | 2018-09-29 06:07 | NUR ---
REMAINS WITHOUT DISTRESS. STILL COMPLAINS OF PAIN TO BACK AND KNEES. PT STATES SHE HAS PAIN ALL THE TIME. SHE IS WITHOUT CHANGE FROM INITIAL SHIFT ASSESSMENT. CONT PLAN OF CARE
[2018-09-29 06:49] VITALS: BP 146/79
[2018-09-29 07:21] LABS: BASOPHILS 0.1 % (0-2); EOSINOPHILS 0.5 % (0-7); HEMATOCRIT 45.1 % (36.0-48.0); HEMOGLOBIN 15.4 g/dL (12-16); IMMATURE GRANULOCYTES 0.2 % (0-5); LYMPHOCYTES 38.1 % (15-50); MCH 29.9 pg (26.0-34.0); MCHC 34.1 g/dL (31.0-37.0); MCV 87.6 fL (80.0-100.0); MEAN PLATELET VOLUME 9.4 fL (7.4-10.4); MONOCYTES 10.5 % (2-11); NEUTROPHILS 50.6 % (40-80); PLATELET COUNT 334 10x3/uL (130-400); RBC 5.15 10x6/uL (4.00-5.40)
[2018-09-29 07:25] LABS: WBC 10.6 10x3/uL (4.8-10.8)
--- NOTE | 2018-09-29 07:31 | NUR ---
PT RESTING IN BED. DOING UPDRAFT. NO S/S OF ACUTE DISTRESS. CL IN PLACE.
[2018-09-29 07:42] LABS: CARBON DIOXIDE 29.5 mmol/L (21.0-32.0); CHLORIDE - SERUM 106 mmol/L (98-107); CREATININE - SERUM 0.7 mg/dL (0.6-1.3); GLUCOSE 91 mg/dL (74-106); SODIUM 144 mmol/L (136-145); eGFR NON AFRICAN AMERICAN > 90 mL/min (90-120)
[2018-09-29 07:52] LABS: CALC OSMOLALITY 286 mosm/kg (275-300); POTASSIUM - SERUM 2.8 mmol/L (3.5-5.1); UREA NITROGEN 12 mg/dL (7-18)
[2018-09-29 10:17] VITALS: BP 120/82
[2018-09-29 13:11] VITALS: BP 127/77
[2018-09-29] MEDS ORDERED: CIPROFLOXACIN750 MG PO (15:11)
[2018-09-29] MEDS ORDERED: SULFAMETHOXAZOL1 TA2 PO (15:11)
[2018-09-29] MEDS ORDERED: PREDNISONE10 MG PO (15:12)
[2018-09-29] MEDS ORDERED: IPRAT-ALBUT 0.5-3 ML UPD (16:14)
[2018-09-29] MEDS ORDERED: ALBUTEROL SULF8.5 GM INH (16:14)
[2018-09-29] MEDS ORDERED: DOXYCYCLINE HY100 M2 PO (16:14)
[2018-09-29] MEDS ORDERED: SYMBICORT 80-10.2 GM INH (16:14)
--- NOTE | 2018-09-29 16:57 | MORECARE ---
CASE MANAGEMENT DISCHARGE SUMMARY PATIENT: CHUCKY PALMA DIOGENES UNIT: [id number] ADM DATE: 09/25/18 AGE: 57 : 58 SEX: F ROOM/BED: D.2215 AUTHOR: ERASMO VILLEGAS PHYSICIAN: REFERRING PHYSICIAN: SAVITA BILLS MD DATE OF SERVICE: 09/29/18 Discharge Plan Patient Name: CHUCKY PALMA Facility: [facility]:[place] : 1960 Planned Disposition: Anticipated Discharge Date: 09/29/18 Discharge Date: Expected LOS: 4 Initial Reviewer: [email or web address] Initial Review Date: 09/29/2018 Generated: 09/29/18 5:57 pm Comments DCP- Discharge Planning Updated by [email or web address]: Marium Camp on 09/29/18 3:[address] Patient Name: CHUCKY PALMA Admission Status: ER Accout number: [id number] Admission Date: 09-25-2018 : 1960 Admission Diagnosis:PNEUMONIA, UNSPECIFIED ORGANISM Attending: SAVITA BILLS Current LOS: 4 Anticipated DC Date: Planned Disposition: Primary Insurance: [employer] CHOICE PPO MCR ADVANT Discharge Planning Comments: CM MET WITH PATIENT ABOUT DC PLANNING/NEEDS. STATES HAS NEBS AND 02 AT HOME [facility]ROUGH [facility] [place]. LIVES AT HOME WITH OLIVERIO. SAFE ENVIRONMENT. [facility] SOMEONE WILL PICK HER UP AT TIME OF DC. DENIES ANY NEEDS. CM TO FOLLOW. Petroleum Production Engineer: Marium Camp Patient Name: CHUCKY PALMA Page [phone] at 1657 All edits/amendments must be made on the electronic document DICTATION DATE: 09/29/181655 RADAR TESTER: ALON 09/29/181655 RPT#: [id number] DC DATE: STATUS: ADM IN [facility] [address] [place] [address] END OF REPORT
--- NOTE | 2018-09-29 17:38 | NUR ---
DC INSTRUCTIONS AND EDUCATION DONE WITH PT. DC IV WITH TIP INTACT. BF TOOK ALL BELONGINGS DOWN TO CAR. ASSISTED PT OFF FLOOR VIA WC. NO S/S OF ACUTE DISTRESS.
== END 2018-09-29 17:39 | disposition home or self-care (01) | DRG 177 ==
LOC: D.ER 18:52 → D.MS 20:45
PROVIDERS: Emergency Medicine; Internal Medicine Nephrology; ADMIT Emergency Medicine; ATTEND Emergency Medicine
DX: J15.6 Pneumonia due to other Gram-negative bacteria (principal); J96.01 Acute respiratory failure with hypoxia; J44.0 Chronic obstructive pulmonary disease with (acute) lower respiratory infection; J84.9 Interstitial pulmonary disease, unspecified; J15.212 Pneumonia due to Methicillin resistant Staphylococcus aureus; Y95 Nosocomial condition; I10 Essential (primary) hypertension; K21.9 Gastro-esophageal reflux disease without esophagitis; G47.36 Sleep related hypoventilation in conditions classified elsewhere; M19.90 Unspecified osteoarthritis, unspecified site; M41.9 Scoliosis, unspecified; F41.9 Anxiety disorder, unspecified

== ENCOUNTER 2018-10-02 05:10 | Emergency (ER) | payer MEDICARE, MEDICAID ==
[~2018-10-02] VITALS: Ht 160 cm; Wt 79.1 kg
[~2018-10-02 05:10] MED LIST changes: +ALBUTEROL SULF8.5 GM INH; +CIPROFLOXACIN750 MG PO; +DOXYCYCLINE HY100 M2 PO; +IPRAT-ALBUT 0.5-3 ML UPD; +NEURONTIN600 MG PO; +PERCOCET 10-321 EAC1 PO; +SULFAMETHOXAZOL1 TA2 PO; +SYMBICORT 80-10.2 GM INH; +TAMIFLU75 MG PO
[2018-10-02 05:13] VITALS: Ht 160 cm; Wt 79.1 kg
[2018-10-02 05:33] LABS: HEMOGLOBIN 10.8 g/dL (12-16); MCH 29.7 pg (26.0-34.0); MCHC 33.8 g/dL (31.0-37.0); MCV 87.9 fL (80.0-100.0); MEAN PLATELET VOLUME 9.1 fL (7.4-10.4); PLATELET COUNT 323 10x3/uL (130-400); RBC 3.64 10x6/uL (4.00-5.40); RDW 15.8 % (11.5-14.5); WBC 18.2 10x3/uL (4.8-10.8)
[2018-10-02 05:44] LABS: APTT 25.7 SECONDS (22.8-39.4); INR 1.01 (0.85-1.17); PROTIME 12.8 SECONDS (11.6-15.0)
[2018-10-02 05:48] LABS: ALBUMIN 2.8 g/dL (3.4-5.0); BILIRUBIN - TOTAL 0.46 mg/dL (0.2-1.3); CALCIUM 8.8 mg/dL (8.5-10.1); CARBON DIOXIDE 26.7 mmol/L (21.0-32.0); POTASSIUM - SERUM 3.7 mmol/L (3.5-5.1); PROTEIN - SERUM 5.4 g/dL (6.4-8.2)
[2018-10-02 05:50] LABS: EOSINOPHILS 1 % (0-7); LYMPHOCYTES 38 % (15-50); MONOCYTES 6 % (2-11); NEUTROPHILS 53 % (40-80); PLATELET ESTIMATE NORMAL
[2018-10-02 09:10] VITALS: BP 112/44
== END 2018-10-02 09:11 | disposition other institution (70) ==
LOC: D.ER 05:10
PROVIDERS: Family Medicine
DX: K92.2 Gastrointestinal hemorrhage, unspecified (principal); D64.9 Anemia, unspecified; J44.9 Chronic obstructive pulmonary disease, unspecified

== ENCOUNTER 2019-02-14 11:41 | Emergency (ER) | payer MEDICARE, MEDICAID ==
[~2019-02-14] VITALS: Ht 160 cm; Wt 81.8 kg
[2019-02-14 11:48] VITALS: Ht 160 cm; Wt 81.8 kg
[2019-02-14] MEDS ORDERED: METHOCARBAMOL750 MG NG (13:11)
[2019-02-14] MEDS ORDERED: VOLTAREN75 MG PO (13:11)
[2019-02-14 13:42] VITALS: BP 180/90
== END 2019-02-14 13:36 | disposition home or self-care (01) ==
LOC: D.ER 11:41
DX: S20.212A Contusion of left front wall of thorax, initial encounter (principal); W19.XXXA Unspecified fall, initial encounter; M54.5 Low back pain; I10 Essential (primary) hypertension; J44.9 Chronic obstructive pulmonary disease, unspecified; K21.9 Gastro-esophageal reflux disease without esophagitis; M54.9 Dorsalgia, unspecified

== ENCOUNTER 2019-02-21 16:47 | Emergency (ER) | payer MEDICARE, MEDICAID ==
[~2019-02-21] VITALS: Ht 160 cm; Wt 81.8 kg
[~2019-02-21 16:47] MED LIST changes: +METHOCARBAMOL750 MG NG; +VOLTAREN75 MG PO
[2019-02-21 17:17] VITALS: Ht 160 cm; Wt 81.8 kg
[2019-02-21 17:57] LABS: BASOPHILS 0.4 % (0-2); EOSINOPHILS 2.3 % (0-7); HEMATOCRIT 46.9 % (36.0-48.0); HEMOGLOBIN 15.3 g/dL (12-16); IMMATURE GRANULOCYTES 0.2 % (0-5); LYMPHOCYTES 26.1 % (15-50); MCH 29.1 pg (26.0-34.0); MCHC 32.6 g/dL (31.0-37.0); MCV 89.3 fL (80.0-100.0); MEAN PLATELET VOLUME 8.7 fL (7.4-10.4); MONOCYTES 5.8 % (2-11); NEUTROPHILS 65.2 % (40-80); PLATELET COUNT 301 10x3/uL (130-400); RBC 5.25 10x6/uL (4.00-5.40); RDW 18.9 % (11.5-14.5); WBC 13.8 10x3/uL (4.8-10.8)
[2019-02-21 18:31] LABS: CALC OSMOLALITY 281 mosm/kg (275-300); CALCIUM 9.3 mg/dL (8.5-10.1); CARBON DIOXIDE 29.1 mmol/L (21.0-32.0); CHLORIDE - SERUM 105 mmol/L (98-107); CREATININE - SERUM 0.8 mg/dL (0.6-1.3); GLUCOSE 94 mg/dL (74-106); POTASSIUM - SERUM 4.2 mmol/L (3.5-5.1); SODIUM 142 mmol/L (136-145); UREA NITROGEN 11 mg/dL (7-18); eGFR NON AFRICAN AMERICAN 78 mL/min (90-120)
[2019-02-21 18:46] LABS: ALBUMIN 3.7 g/dL (3.4-5.0); ALKALINE PHOSPHATASE 112 U/L (46-116); ALT (SGPT) 14 U/L (10-68); BILIRUBIN - TOTAL 0.33 mg/dL (0.2-1.3); CKMB 0.8 U/L (0.0-3.6); CREATINE KINASE 40 UL (21-215); PROTEIN - SERUM 7.2 g/dL (6.4-8.2); TROPONIN-I < 0.017 ng/mL (0.000-0.060)
[2019-02-21] MEDS ORDERED: TESSALON PERLE100 MG PO (20:38)
[2019-02-21] MEDS ORDERED: STERAPRED 5MG 65 M1 PO (20:38)
[2019-02-21 21:51] LABS: CKMB 0.8 U/L (0.0-3.6); CREATINE KINASE 39 UL (21-215); TROPONIN-I < 0.017 ng/mL (0.000-0.060)
[2019-02-21 22:03] VITALS: BP 161/80
== END 2019-02-21 22:04 | disposition home or self-care (01) ==
LOC: D.ER 16:47
PROVIDERS: Family Medicine
DX: J44.1 Chronic obstructive pulmonary disease with (acute) exacerbation (principal); R05 Cough; R07.89 Other chest pain; I10 Essential (primary) hypertension; Z72.0 Tobacco use

== ENCOUNTER 2019-10-27 19:28 | Emergency (ER) | payer MEDICARE, MEDICAID ==
[~2019-10-27] VITALS: Ht 160 cm; Wt 81.8 kg
[~2019-10-27 19:28] MED LIST changes: +STERAPRED 5MG 65 M1 PO
[2019-10-27 19:43] VITALS: Ht 160 cm; Wt 81.8 kg
[2019-10-27 20:09] LABS: BASOPHILS 0.4 % (0-2); EOSINOPHILS 1.8 % (0-7); HEMATOCRIT 48.7 % (36.0-48.0); HEMOGLOBIN 16.2 g/dL (12-16); IMMATURE GRANULOCYTES 0.2 % (0-5); LYMPHOCYTES 40.7 % (15-50); MCH 30.8 pg (26.0-34.0); MCHC 33.3 g/dL (31.0-37.0); MCV 92.6 fL (80.0-100.0); MEAN PLATELET VOLUME 9.1 fL (7.4-10.4); MONOCYTES 5.9 % (2-11); PLATELET COUNT 356 10x3/uL (130-400); RBC 5.26 10x6/uL (4.00-5.40); RDW 14.7 % (11.5-14.5); WBC 11.3 10x3/uL (4.8-10.8)
[2019-10-27 20:13] LABS: CALC OSMOLALITY 275 mosm/kg (275-300); CARBON DIOXIDE 28.5 mmol/L (21.0-32.0); CHLORIDE - SERUM 105 mmol/L (98-107); GLUCOSE 96 mg/dL (74-106); POTASSIUM - SERUM 3.7 mmol/L (3.5-5.1); SODIUM 140 mmol/L (136-145); UREA NITROGEN 5 mg/dL (7-18); eGFR NON AFRICAN AMERICAN 60 mL/min (90-120)
[2019-10-27 20:14] LABS: APTT 31.8 SECONDS (22.8-39.4); INR 0.9 (0.85-1.17); PROTIME 12.1 SECONDS (11.6-15.0)
[2019-10-27 20:27] LABS: THYROID STIMULATING HORMONE 1.75 uIU/mL (0.36-3.74)
[2019-10-27 20:29] LABS: ALBUMIN 3.6 g/dL (3.4-5.0); ALKALINE PHOSPHATASE 99 U/L (30-120); ALT (SGPT) 20 U/L (10-68); CREATINE KINASE 70 UL (21-215); PRO BNP 76 pg/mL (0-125); TROPONIN-I < 0.017 ng/mL (0.000-0.060)
[2019-10-27 20:40] LABS: C-REACTIVE PROTEIN < 0.2 mg/dL (0.0-0.9)
[2019-10-27 22:20] VITALS: BP 167/89
== END 2019-10-27 22:20 | disposition home or self-care (01) ==
LOC: D.ER 19:28
PROVIDERS: Family Medicine
DX: Z20.828 Contact with and (suspected) exposure to other viral communicable diseases (principal); G89.29 Other chronic pain; I10 Essential (primary) hypertension; J44.9 Chronic obstructive pulmonary disease, unspecified; R06.02 Shortness of breath